=== PATIENT | female | born 1960 | race Caucasian/White ===

== ENCOUNTER 2020-09-29 20:04 | Inpatient (IN) | payer MEDICAID, SELFPAY ==
[2020-09-29] VITALS (13 sets, daily range): BP systolic 106–187; BP diastolic 75–142; PULSE 70–95; RESP 13–27; TEMP 36.8; O2SAT 92–99; BMI 26.5
--- NOTE | 2020-09-29 20:30 | XR_ITS ---
WS: [id number] Exam: XR chest 1V portable [id number] Date/Time of Exam: 09/29/2020 8:32 PM Reason For Exam: weakness Comparison 09/29/2011. Ill-defined nodular densities identified throughout both lungs apparently representing the patient's known metastatic pulmonary disease. The lungs are fully expanded. No consolidating infiltrate seen. N ormal cardiomediastinal structures. Bony elements appear to be intact. XR/XR chest 1V portable [id number] IMPRESSION: 1. Tiny ill-defined nodules scattered throughout both lungs which represents a change from the prior study. This apparently represents the patient's known pul monary metastatic disease. 2. No consolidating infiltrates or pneumothorax.
--- NOTE | 2020-09-29 20:30 | ECG_ITS ---
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 Measurements Intervals Br[place] Rate: 70 P: 35 [place]: 190 QRS: -4 QRSD: 84 T: 0 QT: 400 QTc: 433 Interpretive Statements SINUS RHYTHM MODERATE ST DEPRESSION [0.05+ mV ST DEPRESSION] No previous ECG available for comparison Electronically Signed On 09-30-2020 23:44:09 DRAFTER APPRENTICE by Branden Greene M.D. [id number]
--- NOTE | 2020-09-29 20:33 | ED_ITS ---
HPI - Weakness General: Chief complaint: Weakness Stated complaint: N/V WEAKNESS Time Seen by Provider: 09/29/20 20:30 History of Present Illness: HPI Narrative: Patient is a female comes to the ED via EMS for nausea/vomiting and generalized weakness. Symptoms started approximately 1 week ago and have gotten worse. She says she has had multiple episodes of emesis over the past several days. She says she has some mild abdominal pain that is centrally located on the abdomen. She endorses having a dry cough for the past several days as well. Denies any fever, chills, chest pain, shortness of breath, diarrhea, constipation, blood in the stool, dysuria, hematuria. Patient says she tested positive for COVID-19 back in May and fully recovered. Associated symptoms: Reports nausea and vomiting; Denies chest pain, chills, dysuria, fever(s) or headache(s) Review of Systems Const: Reports: fatigue and malaise; Denies: fever(s) or chills Eyes: Denies: change in vision or eye discomfort ENMT: Denies: throat pain, odynophagia, nasal discharge or nasal congestion Card: Denies: chest pain, palpitations, edema, swelling of feet/ankles, dyspnea on exertion or orthopnea Resp: Reports: non-productive cough; Denies: dyspnea or productive cough GI: Reports: abdominal pain (Periumbilical region), nausea and vomiting; Denies: diarrhea, constipation or hematochezia : Denies: flank pain, dysuria or hematuria Musc: Denies: neck pain, back pain or extremity swelling Skin/Breast: Denies: rash or new lesions Neuro: Denies: headache(s), numbness in extremities or weakness in extremities PFS ED PFSH: Medical History Arthritis Asthma Back pain Bipolar disorder Breast cancer Depression Dyslipidemia GERD (gastroesophageal reflux disease) Physical Exam Const: COMMON NORMALS: no acute distress, patient oriented x3 and alert GENERAL APPEARANCE: cooperative, comfortable and lethargic (Patient seems sleepy) ORIENTATION/CONSCIOUSNESS: Yes lethargic (Patient seems sleepy) HENMT: COMMON NORMALS: normocephalic HEAD & SCALP: normocephalic MOUTH: Normal oral and palatal mucosa present and moist mucous membranes abnormal (Moderate level and dehydration.) Details: parched THROAT: posterior oropharynx normal and uvula midline Eye: COMMON NORMALS: Equal, round and reactive pupils present and conjunctivae normal CONJUNCTIVA: Yes conjunctivae normal PUPIL: Yes Equal, round and reactive pupils present Neck/C-Spine: COMMON NORMALS: supple GENERAL: Yes normal visual inspection Resp: COMMON NORMALS: normal respiratory effort, No retractions, No use of accessory muscles and clear to auscultation bilaterally AUSCULTATION: clear to auscultation bilaterally Cardio: COMMON NORMALS: regular rate, regular rhythm, S1 normal heart sound present, S2 normal heart sound present, No gallops present (Cardio), No clicks present (Cardio) and No murmurs present (Cardio) RATE: regular rate RHYTHM: regular rhythm HEART SOUNDS: S1 normal heart sound present and S2 normal heart sound present PERIPHERAL PULSES: radial pulses present positive bilateral 1+ and dorsalis pedis present positive bilateral 1+ GI: COMMON NORMALS: Normal to inspection, nondistended, normoactive bowel sounds present, Soft to palpation and no masses PALPATION: Yes Soft to palpation and Yes Tenderness to palpation present (GI) (Periumbilical tenderness.) : COMMON NORMALS: Yes no CVA tenderness BLADDER/KIDNEY EXAM: Yes no CVA tenderness Back/Pelvis: COMMON NORMALS: no CVA tenderness Extremity: COMMON NORMALS: normal to inspection and no pedal edema Neuro: COMMON NORMALS: patient oriented x3 and moves all extremities SENSORIUM/ORIENTATION: Yes alert and Yes lethargic (Patient seems sleepy) Skin: GENERAL SKIN EXAM: dry skin Course Reevaluation(s): Reevaluation #1: I went and discussed CT results with patient. Patient says she was told over a year or 2 ago that she has possible breast cancer in the right breast. She said that she opted out of getting any treatment and has not seeked any further medical treatment or evaluation for breast cancer since. I told patient that CT findings show that breast cancer has metastasized and its in her lungs, bones and lymph nodes. Patient did not appear shocked or upset about findings. Time: 22:30 Vital Signs: Vital signs: Vital Signs Temperature 97.8 F 09/30/20 03:00 Pulse Rate 77 09/30/20 03:00 Respiratory Rate 17 09/30/20 03:00 Blood Pressure 203/107 09/30/20 03:00 Pulse Oximetry 90 09/30/20 03:00 MDM - Weakness MDM Narrative: Medical decision making narrative: Patient is a 60-year-old female comes to the ED with weakness, nausea and vomiting. She denies any chest pain or shortness of breath. Patient did end up telling me that she was told she had breast cancer and right breast over a year ago and she did not seek out any further treatment or care to address breast cancer. On exam patient seems lethargic and sleepy but is alert and oriented and responds to all my questions. She had some mild periumbilical tenderness upon palpation. CBC and CMP were unremarkable. CT of chest abdomen and pelvis showed right breast cancer with lung and bone metastases. First troponin 24 and 2-hour troponin was 114. I talked with patient about breast cancer diagnosis and its metastases. Patient did not seem surprised by news that her breast cancer had worsened. She told me that after she was diagnosed with breast cancer she just decided not to pursue any further treatment. I then discussed patient case with Dr. Means and he told me to call Dr. García to have patient admitted. I contacted Dr. García and he wants patient put in on obs and he had me order a CTA of Chest. Dr. Means put in admitting orders. Lab Data: Attestation: I reviewed the patient's lab results. Labs: Lab Results 09/29/20 09/29/20 09/29/20 Range/Units 20:40 20:40 20:40 WBC 10.2 H (4.0-10.0) 10^3/ uL Corrected WBC 9.8 (4.8-10.8) 10^3/ cmm RBC 4.59 (4.1-5.3) 10^6/u L Hgb 14.5 (11.5-15.3) g/dL Hct 43.8 (37.0-47.0) % MCV 95.4 (81-99) fL MCH 31.6 (28.0-34.0) pg MCHC 33.1 (30.0-36.0) g/dL RDW 14.4 (12.1-15.1) % Plt Count 164 (130-400) 10^3/c mm MPV 9.5 (7.4-10.4) fL Lymph % (Auto) Not Reportable [place] % (Auto) Not Reportable Lymph # (Auto) Not Reportable [place] # (Auto) Not Reportable Total Counted 100 (0-100) Atypical Lymphs % 0.0 (0-5) % Absolute Neutrophi ls 6.3 (1.4-6.5) 10^3/c mm Segmented Neutroph ils 60 % Abs Segm Neuts (Ma n) 6.1 (1.6-7.1) 10/cmm Band Neutrophils 2.0 % Abs Band Neuts (Ma n) 0.2 (0.0-1.2) 10^3/c mm Lymphocytes (Manua l) 28 % Monocytes (Manual) 3.0 % Absolute Monocytes 0.3 (0.1-0.6) 10^3/c mm Eosinophils (Manua l) 0 % Absolute Eosinophi ls 0.0 (0.0-0.7) 10^3/c mm Basophils (Manual) 0.0 % Absolute Basophils 0.0 (0.0-0.2) 10^3/c mm Metamyelocytes 6.0 % Myelocytes 1.0 % Nucleated RBCs 4.0 H (0-1) /100WBC Platelet Estimate Normal (Normal) Sodium 135 L (136-145) mmol/L Potassium 4.6 (3.5-5.1) mmol/L Chloride 94 L (98-107) mmol/L Carbon Dioxide 22 (22-29) mmol/L Anion Gap 23.6 H (5-19) BUN 23 (8-23) mg/dL Creatinine 0.7 (0.5-0.9) mg/dL GFR Calculation 85.4 L (90-130) mL/min Glucose 166 H (65-115) mg/dL Calculated Osmolal ity 287 (285-295) mOsm/k g Calcium 10.4 (8.5-10.5) mg/dL Total Bilirubin 0.4 (0.15-1.2) mg/dL AST 100 H (0-32) U/L ALT 171 H (0-33) U/L Alkaline Phosphata se 198 H (35-105) IU/L Troponin T Baselin e 24 H (0-10) ng/L Troponin T 120 Min twila (0-10) ng/L Delta Troponin T (0-10) ABS# Total Protein 7.6 (6.6-8.7) g/dL Albumin 4.8 (3.5-5.2) g/dL Globulin 2.8 (1.3-4.6) g/dL Lipase 33 (13-60) U/L Urine Color (Yellow) Urine Appearance (CLEAR) Urine pH (5-7) Ur Specific Gravit y (1.005-1.030) Urine Protein (Negative) Urine Glucose (UA) (Normal) Urine Ketones (Negative) Urine Blood (Negative) Urine Nitrate (Negative) Urine Bilirubin (Negative) Urine Urobilinogen (Negative) mg/dL Ur Leukocyte Liyah ase (Negative) Urine RBC (0-2) /hpf Urine WBC (0-5) /hpf Ur Squamous Epith Cells (0-5) /hpf Amorphous Sediment /hpf Urine Bacteria (NONE) /hpf Hyaline Casts /lpf 09/29/20 09/29/20 Range/Units 20:40 23:44 WBC (4.0-10.0) 10^3/ uL Corrected WBC (4.8-10.8) 10^3/ cmm RBC (4.1-5.3) 10^6/u L Hgb (11.5-15.3) g/dL Hct (37.0-47.0) % MCV (81-99) fL MCH (28.0-34.0) pg MCHC (30.0-36.0) g/dL RDW (12.1-15.1) % Plt Count (130-400) 10^3/c mm MPV (7.4-10.4) fL Lymph % (Auto) [place] % (Auto) Lymph # (Auto) [place] # (Auto) Total Counted (0-100) Atypical Lymphs % (0-5) % Absolute Neutrophi ls (1.4-6.5) 10^3/c mm Segmented Neutroph ils % Abs Segm Neuts (Ma n) (1.6-7.1) 10/cmm Band Neutrophils % Abs Band Neuts (Ma n) (0.0-1.2) 10^3/c mm Lymphocytes (Manua l) % Monocytes (Manual) % Absolute Monocytes (0.1-0.6) 10^3/c mm Eosinophils (Manua l) % Absolute Eosinophi ls (0.0-0.7) 10^3/c mm Basophils (Manual) % Absolute Basophils (0.0-0.2) 10^3/c mm Metamyelocytes % Myelocytes % Nucleated RBCs (0-1) /100WBC Platelet Estimate (Normal) Sodium (136-145) mmol/L Potassium (3.5-5.1) mmol/L Chloride (98-107) mmol/L Carbon Dioxide (22-29) mmol/L Anion Gap (5-19) BUN (8-23) mg/dL Creatinine (0.5-0.9) mg/dL GFR Calculation (90-130) mL/min Glucose (65-115) mg/dL Calculated Osmolal ity (285-295) mOsm/k g Calcium (8.5-10.5) mg/dL Total Bilirubin (0.15-1.2) mg/dL AST (0-32) U/L ALT (0-33) U/L Alkaline Phosphata se (35-105) IU/L Troponin T Baselin e (0-10) ng/L Troponin T 120 Min twila 114.0 H (0-10) ng/L Delta Troponin T 90.0 H* (0-10) ABS# Total Protein (6.6-8.7) g/dL Albumin (3.5-5.2) g/dL Globulin (1.3-4.6) g/dL Lipase (13-60) U/L Urine Color Yellow (Yellow) Urine Appearance Cloudy (CLEAR) Urine pH 7 (5-7) Ur Specific Gravit y 1.005 (1.005-1.030) Urine Protein Trace (Negative) Urine Glucose (UA) Norm (Normal) Urine Ketones 1+ H (Negative) Urine Blood 3+ H (Negative) Urine Nitrate Negative (Negative) Urine Bilirubin Neg (Negative) Urine Urobilinogen Norm (Negative) mg/dL Ur Leukocyte Liyah ase 2+ H (Negative) Urine RBC 10-15 H (0-2) /hpf Urine WBC 80-100 H (0-5) /hpf Ur Squamous Epith Cells 5-10 H (0-5) /hpf Amorphous Sediment 3+ /hpf Urine Bacteria 3+ H (NONE) /hpf Hyaline Casts 5-10 H /lpf Imaging Data^: CXR: Attestation: I personally reviewed and interpreted this imaging study as follows: CT Abd/Pel: Attestation: I personally reviewed and interpreted this imaging study as follows: Radiologist's impression: [address] [address] [address] Scan Report Signed with Addenda Patient: Savanah Taylor Unit #: [id number] : 1960 Age/Sex: 60 / F ADM Date: 09/29/20 Loc: ER Room/Bed: Attending Dr: Ordering Provider/Ordering MD: Michael Weinberg Date of Service: 09/29/20 Procedure(s): CT chest abd pel w con* Accession Number(s): [id number] Report Number: [id number]/CT chest abd pel w con* THIS REPORT CONTAINS FINDINGS THAT MAY BE CRITICAL TO PATIENT CARE. The findings were verbally communicated via telephone conference with Michael Weinberg at 10:17 PM DOWEL INSPECTOR on 09/29/2020. The findings were acknowledged and understood. Radiation Dose CTDIVOL = (mGy): DLP = 1351.78 1351.78 (mGy-cm) Addendum Dictated By: Giovanni Barriga Addendum Signed By: Giovanni Barriga Signed Date/Time: 09/29/20 2 217 Addendum Cosigned By: PROCEDURE INFORMATION: Exam: CT Chest With Contrast; Diagnostic Exam date and time: 09/29/2020 9:39 PM Age: 60 years old Clinical indication: Nausea and vomiting; Shortness of breath; Additional info: N/v and abdom pain TECHNIQUE: Imaging protocol: Diagnostic computed tomography of the chest with intravenous contrast. Radiation optimization: All CT scans at this facility use at least one of these dose optimization techniques: automated exposure control; mA and/or kV adjustment per patient size (includes targeted exams where dose is matched to clinical indication); or iterative reconstruction. Contrast material: OMNI 300; Contrast volume: 95 ml; Contrast route: INTRAVENOUS (IV); COMPARISON: CR XR chest 1V portable [id number] 09/29/2020 8:30 PM RADIATION DOSE METRICS: Total DLP (mGy-cm): 1351.78 FINDINGS: Lungs: Too numerous to count random pulmonary nodules in both lungs, measuring up to 1.1 cm. Calcified granuloma in the right lung. Pleural space: Unremarkable. No pneumothorax. No pleural effusion. Heart: Unremarkable. No cardiomegaly. No pericardial effusion. Mediastinal space: Large hiatal hernia. Aorta: Unremarkable. No aortic aneurysm. Lymph nodes: Mildly enlarged right axillary lymph nodes. Prominent mediastinal lymph nodes measuring up to 1.2 cm short axis. Bones/joints: Numerous tiny sclerotic lesions scattered throughout the entire skeleton. No pathologic fracture or compression fracture identified. Thoracic scoliosis. Soft tissues: Large 5.7 cm spiculated mass in the central right breast with overlying skin thickening and nipple retraction. IMPRESSION: 1. 5.7 cm spiculated mass in the central right breast with subareolar extension. This is consistent with breast malignancy. Follow-up with mammography and ultrasound recommended. 2. Severe pulmonary metastatic disease. 3. Severe diffuse blastic bony metastatic disease. 4. Probable right axillary lymph node metastasis. 5. Prominent mediastinal lymph nodes are most likely reactive but metastatic disease is not excluded. PROCEDURE INFORMATION: Exam: CT Abdomen And Pelvis With Contrast Exam date and time: 09/29/2020 9:39 PM Age: 60 years old Clinical indication: Nausea and vomiting; Shortness of breath; Additional info: N/v and abdom pain TECHNIQUE: Imaging protocol: Computed tomography of the abdomen and pelvis with intravenous contrast. Radiation optimization: All CT scans at this facility use at least one of these dose optimization techniques: automated exposure control; mA and/or kV adjustment per patient size (includes targeted exams where dose is matched to clinical indication); or iterative reconstruction. Contrast material: OMNI 300; Contrast volume: 95 ml; Contrast route: INTRAVENOUS (IV); COMPARISON: CR XR chest 1V portable [id number] 09/29/2020 8:30 PM RADIATION DOSE METRICS: Total DLP (mGy-cm): 1351.78 FINDINGS: Liver: Normal. No mass. Gallbladder and bile ducts: Normal. No calcified stones. No ductal dilation. Pancreas: Normal. No ductal dilation. Spleen: Normal. No splenomegaly. Adrenal glands: Normal. No mass. Kidneys and ureters: Normal. No hydronephrosis. Stomach and bowel: Moderate stool containing dense contrast material within the rectum. Mild diverticulosis of the distal colon. The small bowel is unremarkable. Appendix: The appendix is visualized and is normal. Intraperitoneal space: Unremarkable. No free air. No significant fluid collection. Vasculature: Unremarkable. No abdominal aortic aneurysm. Lymph nodes: Unremarkable. No enlarged lymph nodes. Urinary bladder: Unremarkable as visualized. Reproductive: Unremarkable as visualized. Bones/joints: Numerous sclerotic lesions scattered throughout the entire skeleton. No pathologic or compression fracture identified. Lumbar scoliosis. Soft tissues: Unremarkable. CT/CT chest abd pel w con* IMPRESSION: 1. No acute abnormality identified in the abdomen or pelvis. 2. Diffuse bony metastatic disease. Radiation Dose CTDIVOL = (mGy): DLP = 1351.78 1351.78 (mGy-cm) Dictated By: Giovanni Barriga Signed By: Giovanni Barriga Signed Date/Time: 09/29/202216 DD/ 15 EKG Data^: EKG 1: Attestation: I personally reviewed and interpreted this EKG as follows: EKG interpretation date: 09/29/20 Interpretation: Sinus rhythm, 70 bpm, no ST segment elevation or depression seen. EKG 2: Attestation: I personally reviewed and interpreted this EKG as follows: EKG interpretation date: 09/29/20 Interpretation: Normal sinus rhythm, 76 bpm, no ST segment elevation or depression seen. No acute changes compared to previous ECG at 2120 today. Discharge Plan Discharge Admit Provider: Abel García Discharge Orders: Transfer Out of Facility (Order); Ordered 09/30/20 Ordered By: Abel García Coding Level of Care Code ED Director [employer] Fwd Exam Comprehensive
[2020-09-29] MEDS: sodium chloride 0.9% 1,000 ML 999 ML IV (20:50)
[2020-09-29] MEDS: ondansetron 2 mg/ML SDV 2 mL 4 MG IVP (20:51)
[2020-09-29 20:52] LABS: Hematocrit 43.8 % (37.0-47.0); Hemoglobin 14.5 g/dL (11.5-15.3); Mean Corpuscular HGB Conc 33.1 g/dL (30.0-36.0); Mean Corpuscular Hemoglobin 31.6 pg (28.0-34.0); Mean Corpuscular Volume 95.4 fL (81-99); Mean Platelet Volume 9.5 fL (7.4-10.4); Platelet Count 164 10^3/cmm (130-400); Red Blood Count 4.59 10^6/uL (4.1-5.3); Red Cell Distribution Width 14.4 % (12.1-15.1); White Blood Count 10.2 10^3/uL (4.0-10.0)
[2020-09-29 21:17] LABS: Alanine Aminotransferase 171 U/L (0-33); Albumin Level 4.8 g/dL (3.5-5.2); Alkaline Phosphatase 198 IU/L (35-105); Anion Gap 23.6 (5-19); Aspartate Amino Transferase 100 U/L (0-32); Blood Urea Nitrogen 23 mg/dL (8-23); Calcium 10.4 mg/dL (8.5-10.5); Carbon Dioxide 22 mmol/L (22-29); Chloride 94 mmol/L (98-107); Globulin 2.8 g/dL (1.3-4.6); Glomerular Filtration Rate 85.4 mL/min (90-130); Glucose 166 mg/dL (65-115); Lipase 33 U/L (13-60); Osmolality Calculated 287 mOsm/kg (285-295); Potassium 4.6 mmol/L (3.5-5.1); Sodium 135 mmol/L (136-145); Total Bilirubin 0.4 mg/dL (0.15-1.2); Total Protein 7.6 g/dL (6.6-8.7)
[2020-09-29 21:21] LABS: Troponin(5th) Baseline 24 ng/L (0-10)
--- NOTE | 2020-09-29 21:29 | CTR_ITS ---
PROCEDURE INFORMATION: Exam: CT Chest With Contrast; Diagnostic Exam date and time: 09/29/2020 9:39 PM Age: 60 years old Clinical indication: Nausea and vomiting; Shortness of breath; Additional info: N/v and abdom pain TECHNIQUE: Imaging protocol: Diagnostic computed tomography of the chest with intravenous contrast. Radiation optimization: All CT scans at this facility use at least one of these dose optimization techniques: automated exposure control; mA and/or kV adjustment per patient size (includes targeted exams where dose is matched to clinical indication); or iterative reconstruction. Contrast material: OMNI 300; Contrast volume: 95 ml; Contrast route: INTRAVENOUS (IV); COMPARISON: CR XR chest 1V portable [id number] 09/29/2020 8:30 PM RADIATION DOSE METRICS: Total DLP (mGy-cm): 1351.78 FINDINGS: Lungs: Too numerous to count random pulmonary nodules in both lungs, measuring up to 1.1 cm. Calcified granuloma in the right lung. Pleural space: Unremarkable. No pneumothorax. No pleural effusion. Heart: Unremarkable. No cardiomegaly. No pericardial effusion. Mediastinal space: Large hiatal hernia. Aorta: Unremarkable. No aortic aneurysm. Lymph nodes: Mildly enlarged right axillary lymph nodes. Prominent mediastinal lymph nodes measuring up to 1.2 cm short axis. Bones/joints: Numerous tiny sclerotic lesions scattered throughout the entire skeleton. No pathologic fracture or compression fracture identified. Thoracic scoliosis. Soft tissues: Large 5.7 cm spiculated mass in the central right breast with overlying skin thickening and nipple retraction. IMPRESSION: 1. 5.7 cm spiculated mass in the central right breast with subareolar extension. This is consistent with breast malignancy. Follow-up with mammography and ultrasound recommended. 2. Severe pulmonary metastatic disease. 3. Severe diffuse blastic bony metastatic disease. 4. Probable right axillary lymph node metastasis. 5. Prominent mediastinal lymph nodes are most likely reactive but metastatic disease is not excluded. PROCEDURE INFORMATION: Exam: CT Abdomen And Pelvis With Contrast Exam date and time: 09/29/2020 9:39 PM Age: 60 years old Clinical indication: Nausea and vomiting; Shortness of breath; Additional info: N/v and abdom pain TECHNIQUE: Imaging protocol: Computed tomography of the abdomen and pelvis with intravenous contrast. Radiation optimization: All CT scans at this facility use at least one of these dose optimization techniques: automated exposure control; mA and/or kV adjustment per patient size (includes targeted exams where dose is matched to clinical indication); or iterative reconstruction. Contrast material: OMNI 300; Contrast volume: 95 ml; Contrast route: INTRAVENOUS (IV); COMPARISON: CR XR chest 1V portable [id number] 09/29/2020 8:30 PM RADIATION DOSE METRICS: Total DLP (mGy-cm): 1351.78 FINDINGS: Liver: Normal. No mass. Gallbladder and bile ducts: Normal. No calcified stones. No ductal dilation. Pancreas: Normal. No ductal dilation. Spleen: Normal. No splenomegaly. Adrenal glands: Normal. No mass. Kidneys and ureters: Normal. No hydronephrosis. Stomach and bowel: Moderate stool containing dense contrast material within the rectum. Mild diverticulosis of the distal colon. The small bowel is unremarkable. Appendix: The appendix is visualized and is normal. Intraperitoneal space: Unremarkable. No free air. No significant fluid collection. Vasculature: Unremarkable. No abdominal aortic aneurysm. Lymph nodes: Unremarkable. No enlarged lymph nodes. Urinary bladder: Unremarkable as visualized. Reproductive: Unremarkable as visualized. Bones/joints: Numerous sclerotic lesions scattered throughout the entire skeleton. No pathologic or compression fracture identified. Lumbar scoliosis. Soft tissues: Unremarkable. CT/CT chest abd pel w con* IMPRESSION: 1. No acute abnormality identified in the abdomen or pelvis. 2. Diffuse bony metastatic disease. Radiation Dose CTDIVOL = (mGy): DLP = 1351.78~1351.78 (mGy-cm)
[2020-09-29 21:32] LABS: Slide Review Slide Review Perform
[2020-09-29 21:39] LABS: Absolute Segmented Neutrophil 6.1 10/cmm (1.6-7.1); Band Neutrophils Absolute 0.2 10^3/cmm (0.0-1.2); Corrected White Blood Count 9.8 10^3/cmm (4.8-10.8); Eosinophils 0 %; Lymphocytes 28 %; Monocytes Absolute 0.3 10^3/cmm (0.1-0.6); Segmented Neutrophils 60 %; Total Cells Counted 100 (0-100)
[2020-09-29 21:40] LABS: Absolute Neutrophil 6.3 10^3/cmm (1.4-6.5); Platelet Estimate Normal (Normal)
[2020-09-29] MEDS: iohexol 300 mg/mL 100 mL Btl IV (21:48)
[2020-09-29] MEDS: sodium chloride 0.9% 500 ML 999 ML IV (23:54)
[2020-09-29] MEDS: metoclopramide 5 mg/mL SDV 2 mL 10 MG IVP (23:54)
[2020-09-30] VITALS (27 sets, daily range): BP systolic 164–203; BP diastolic 87–127; PULSE 67–115; RESP 11–26; TEMP 36.1–36.6; O2SAT 90–94
[2020-09-30 00:10] LABS: Bilirubin Urine Neg (Negative); Blood Urine 3+ (Negative); Glucose Urine UA Norm (Normal); Ketones Urine 1+ (Negative); Leukocyte Esterase Urine 2+ (Negative); Nitrate Urine Negative (Negative); Protein Urine Trace (Negative); Specific Gravity, Urine 1.005 (1.005-1.030); Urine Appearance Cloudy (CLEAR); Urine Color Yellow (Yellow); Urobilinogen Urine Norm (Negative); pH Urine 7 (5-7)
[2020-09-30 00:11] LABS: Amorphous Sediment Urine 3+ /hpf; Bacteria Urine 3+ /hpf; WBC Urine 80-100 /hpf (0-5)
[2020-09-30 00:12] LABS: Add Urine Culture? Yes
--- NOTE | 2020-09-30 01:10 | CTR_ITS ---
PROCEDURE INFORMATION: Exam: CT Angiography Chest With Contrast Exam date and time: 09/30/2020 1:15 AM Age: 60 years old Clinical indication: Other: Weakness TECHNIQUE: Imaging protocol: Computed tomographic angiography of the chest with intravenous contrast. 3D rendering (Not supervised by radiologist): MIP and/or 3D reconstructed images were created by the technologist. Radiation optimization: All CT scans at this facility use at least one of these dose optimization techniques: automated exposure control; mA and/or kV adjustment per patient size (includes targeted exams where dose is matched to clinical indication); or iterative reconstruction. Contrast material: OMNI 350; Contrast volume: 95 ml; Contrast route: INTRAVENOUS (IV); COMPARISON: CT chest abd pel w con* 2020-09-29 21:37 RADIATION DOSE METRICS: Total DLP (mGy-cm): 603.66 FINDINGS: Pulmonary arteries: Couple small segmental and subsegmental branch pulmonary emboli. Aorta: Unremarkable. No aortic aneurysm. No aortic dissection. Lungs: Innumerable pulmonary metastases with innumerable pulmonary nodules. Pleural space: Unremarkable. No pneumothorax. No pleural effusion. Heart: No cardiac heart strain. Mediastinal space: Moderate hiatal hernia. Lymph nodes: Right axillary adenopathy. Mediastinal and hilar adenopathy. Bones/joints: Skeletal osseous metastases. Soft tissues: Large right breast mass. CT/CT angio chest PE protcl [id number] IMPRESSION: 1. Right axillary adenopathy. Large right breast mass. 2. Couple small segmental and subsegmental branch pulmonary emboli. No cardiac heart strain. 3. Innumerable pulmonary metastases with innumerable pulmonary nodules. 4. Skeletal osseous metastases. THIS REPORT CONTAINS FINDINGS THAT MAY BE CRITICAL TO PATIENT CARE. The study was personally discussed on the telephone with care provider Dr Faith on 09/30/2020 2:35 AM LINE INSPECTOR. The results were understood and acknowledged. Radiation Dose CTDIVOL = (mGy): DLP = 603.66 (mGy-cm)
[2020-09-30] MEDS: iohexol 350 mg/mL 100 mL Btl IV (01:38)
--- NOTE | 2020-09-30 01:42 | P.HP_ITS ---
Providers/Chief Complaint Admitting Physician: Abel García MD Chief Complaint: N/V WEAKNESS History of Present Illness Savanah Taylor is a 60 year old female who presented to the hospital with chief complaint of altered mental status. Patient was accompanied by her daughter as per the ER report however I was not able to talk with any family member. Patient is stating that she started having chest discomfort yesterday which got worse and she started experiencing vomiting. She has had multiple episode of emesis. She is not able to give me much detail. She is not able to describe her chest pain. Her answers are mostly 2 or 3 sentences. Daughter is not present at the time my evaluation. I was told she was diagnosed with breast cancer 2 to 3 years ago but never pursued any treatment. Diagnostics in the ER revealed mild leukocytosis, hypertension, mild hyponatremia, first troponin XX 4, second troponin 114 with abnormal transaminases, CT abdomen revealed breast cancer with multiple metastases, chest x-ray revealed multiple hilar lymphadenopathies. When I was interviewing patient, her attention span was very short and her answers were very simple she was not able to give me any details. Her breathing was not labored. She was able to protect airways. I requested CTA chest and head CT. CT head came back positive for multiple segmental subsegmental PE, head CT critical findings of hydrocephalus, cerebellar edema effacement of fourth ventricle. ER has already given her therapeutic dose of Lovenox for NSTEMI because of delta troponin and ST depression V4 V5 v6, I have discontinued Lovenox, given 10 mg IV Decadron and started on 4 mg Decadron 4 times daily I was not able to get a hold of any family member called 4-5 times,left a voicemail, I eventually requested global chief creative officer to go on the given address to wake her family member up so we could discuss further plan of care. Meanwhile I have talked with the neurosurgeon at [facility], I was able to get in touch with chief of neurosurgery Dr. Peraza and fellow Dr. Randhawa. Facesheet has been faxed, bed has been put on hold. Neurosurgery is concerned whether family would pursue further treatment considering the fact she never pursued any treatment for breast cancer. This is a difficult situation where patient mentation is fluctuant with a very short attention span and we are not able to get in touch with the family. We are still waiting to get update from the global chief creative officer. I have tried my best to explain findings in a simple way to the patient and when I asked her about the transfer and placement of palliative shunt she stated I guess that was needed but I do not know . She was sent to cardiac stepdown unit for management of NSTEMI however I will transfer her to ICU for closer monitoring. Will obtain blood gas level , Review of Systems General: Reports: ROS unobtainable due to medical condition (Delirium se condary to cerebellar edema multiple metastases) Medications/Allergies Home Medications Medication Instructions Recorded Confirmed Last Taken Type Unable to Assess 09/29/20 09/29/20 Unknown History Allergies Allergy/AdvReac Type Severity Reaction Status Date / Time metronidazole [From Flagyl] Allergy ALGY-Rash Verified 09/29/20 20:28 PFSH Acute PFSH: Medical History Arthritis Asthma Back pain Bipolar disorder Breast cancer Depression Dyslipidemia GERD (gastroesophageal reflux disease) Surgical History Surgical history unknown Family History Other Unknown family medical history Social History Smoking and tobacco status: unknown if ever smoked Alcohol intake: unknown Substance/Drug Use: unknown Household members: family Vitals/I&O/Wt Last Vital Signs Temp 98.3 F 09/29/20 20:14 Pulse 90 09/30/20 00:00 Resp 16 09/30/20 00:00 BP 200/107 09/30/20 00:00 Pulse Ox 93 09/30/20 00:00 09/29/20 09/29/20 09/30/20 14:59 22:59 06:59 Intake Total 1000 / 1000 Balance 1000 / 1000 Weight last 48 hrs Weight 68.039 kg Physical Exam Narrative: EXAM NARRATIVE: Middle-age female Appears clinically dehydrated She is able to move her extremities without any gross abnormality Pupils are reactive and symmetrical bilaterally Her attention span is very short Her answers are mostly in 2-3 word sentences Her breathing is normal, she saturating well on room air she is able to protect airways Able to understand my questions but seems indecisive S1, S2 sinus rhythm Abdomen soft nontender bowel sound present Lower extremity no edema gangrene ulcer She is able to move her lower extremities without any limitations, sensory exam is limited Bilateral breath sounds without adventitious rhonchi or crackles She is awake alert to herself and place not time Data : 09/29/20 20:40 09/29/20 20:40 A&P Assessment and plan (1) NSTEMI (non-ST elevated myocardial infarction): Status: Acute (2) Cerebellar edema: Status: Acute (3) Metastatic breast cancer: Status: Acute (4) Bony metastasis: Status: Acute (5) Encephalopathy: Status: Acute (6) Dehydration: Status: Acute Additional A&P Information Altered mental status Secondary to vasogenic edema due to brain metastases History of untreated breast cancer High risk for intubation Currently she is awake alert to herself no acute respiratory distress Would request blood gas Transfer to ICU Start her on Decadron Keep head end of the bed elevated I will start her on mannitol 0.25 g/kg and administer over 30 to 60 minutes and check serum osmolarity after 2 hours NSTEMI Significant troponin with ST depression V4 V5 V6 without cerebral T waves She was given therapeutic dose of Lovenox in the ER which I would hold for now secondary to metastases Patient not complaining of active chest pain Dehydration secondary to emesis She is hypertensive with vasogenic edema I would avoid giving any kind of fluids for now We will give her mannitol in the ICU Full code N.p.o. DVT prophylaxis SCDs avoid anticoagulation she is therapeutic dose of Lovenox in the ER We will transfer her to [facility] once I hear back from the global chief creative officer. For the details read HPI. Attestations Medical Necessity Statement*: Anticipating stay in the hospital cross more than 2 midnights carries guarded prognosis needs management of cerebral edema with risk of intracranial hypertension Time Spent in Patient Care: (>than 50% of time spent in counselling and/or direct pt care on unit) . 60mins Coding Level of Care Code Acute Residential Nurse for Chg Fwd Diagnoses NSTEMI (non-ST elevated myocardial infarction) I21.4 Cerebellar edema G93.6 Metastatic breast cancer C50.919 Bony metastasis C79.51 Encephalopathy G93.40 Dehydration E86.0
--- NOTE | 2020-09-30 02:14 | CTR_ITS ---
PROCEDURE INFORMATION: Exam: CT Head Without Contrast Exam date and time: 09/30/2020 2:27 AM Age: 60 years old Clinical indication: Condition or disease; History of cancer (specify primary cancer site): ; Primary cancer: Breast w/ mets TECHNIQUE: Imaging protocol: Computed tomography of the head without contrast. Radiation optimization: All CT scans at this facility use at least one of these dose optimization techniques: automated exposure control; mA and/or kV adjustment per patient size (includes targeted exams where dose is matched to clinical indication); or iterative reconstruction. COMPARISON: CT head wo con* [id number] 12/10/2013 2:21 PM RADIATION DOSE METRICS: Total DLP (mGy-cm): 603.66 FINDINGS: Brain: Residual contrast from recent CT chest angiogram is noted. Mild enhancement and thickening of the tegmentum is noted. Cerebellar edema is noted. The aqueduct is patent. However, the 4th ventricle is nearly completely effaced and mild hydrocephalus is noted. Effacement of the basal cisterns is also noted. No hemorrhage or CT evidence of acute infarction is seen. Bones/joints: Unremarkable. No acute fracture. Paranasal sinuses: Unremarkable. No fluid level. Mastoid air cells: Visualized mastoid air cells are well aerated. Soft tissues: Unremarkable. CT/CT head wo con* [id number] IMPRESSION: 1. Brain edema which is most prominent in the cerebellum. The 4th ventricle is nearly completely effaced and mild hydrocephalus is noted. 2. Thickening and enhancement tegmentum is appreciated, which is nonspecific. MRI with contrast is recommended for further assessment. Radiation Dose CTDIVOL = (mGy): DLP = 603.66 (mGy-cm)
--- NOTE | 2020-09-30 02:30 | ECG_ITS ---
[facility] Test Date: 2020-09-30 Pat Name: Savanah Taylor Department: Room: 112 Gender: Female University Administrator: AMELIA LAU: 1960 Requested By: Michael Weinberg Order Number: [id number] Ayana MD: Branden Greene M.D. Measurements Intervals [place] Rate: 71 P: -27 WI: 176 QRS: -1 QRSD: 86 T: -17 QT: 408 QTc: 445 Interpretive Statements SINUS RHYTHM POSSIBLE INFERIOR MYOCARDIAL INFARCTION [30 ms Q WAVE IN II/aVF], OF INDETERMINATE AGE Compared to ECG 09/29/2020 21:21:55 Myocardial infarct finding now present ST (T wave) deviation no longer present Electronically Signed On 10-01-2020 0:00:19 ATM TECHNICIAN by Branden Greene M.D. [id number]
--- NOTE | 2020-09-30 03:07 | PC.NURSE ---
Spoke with Dr. García regarding this patient's blood pressure of 203/107. New telephone order received for hydralazine 5 mg iv push.
[2020-09-30] MEDS: hyDRALAzine 20 mg/mL INJ 1 mL 5 MG IVP ×2 (03:18→11:15)
[2020-09-30] MEDS: enoxaparin 100 mg/mL Syringe 70 MG SUBCUT (03:19)
--- NOTE | 2020-09-30 04:19 | PC.NURSE ---
Just notified [place] police department in an attempt to locate this patient's family. The patient at this point is not able to make her own decisions and we are awaiting word from the family on how to proceed with the care of this patient.
--- NOTE | 2020-09-30 04:25 | PC.NURSE ---
Addendum entered by Sonu Tay RN 09/30/20 04:27: let the time for this note reflect the time of admission at 0230. Thank you. Original Note: Pt arrived via ED carrier. Pt transferred to the hospital bed via draw sheet and total lift transfer. Pt is assessed and admission is completed. Pt is placed on the blacktop paver operator. Pt is lethargic and slow to respond. Pt will answer some questions appropriately however occasionally will not respond at all to questions. Pt denies any pain at this time.
--- NOTE | 2020-09-30 04:28 | PC.NURSE ---
Spoke with the transfer center for [facility] phone number [phone] and provided them with the information required. Face sheet faxed. We are currently waiting to hear from the family of this patient to determine the progression of care at this point.
[2020-09-30 04:55] LABS: Troponin 5 6HR 177.5 ng/L (0-10)
[2020-09-30 04:56] LABS: Troponin 5 6HR Delta 153.5 ng/L (0-12)
[2020-09-30 05:13] LABS: ABG PH Result 7.44 (7.35-7.45); Arterial Blood Gas Hematocrit 44.3 % (37-47); Base Excess ABG -1.9 mmol/L (-2.0-2.0); Blood Gas Sample Site Brachial, right; Blood Gas Sample Type Arterial; HCO3 ABG 21.2 mmol/L (22-26); PO2 ABG 68.9 mmHg (80.0-100.0)
--- NOTE | 2020-09-30 05:15 | P.TS_ITS ---
Transfer Summary Providers Date of Admission: 09/30/20 01:23 Date of Discharge: 09/30/20 Attending Provider at Admission: Abel García MD Attending Provider at Transfer: Abel García MD Anticipated Date of Transfer: Anticipated date of transfer: 09/30/20 Receiving Facility & Provider: Receiving Provider: [] Receiving facility: [] Diagnoses at Discharge Discharge Diagnosis (1) NSTEMI (non-ST elevated myocardial infarction): Status: Acute (2) Cerebellar edema: Status: Acute (3) Metastatic breast cancer: Status: Acute (4) Bony metastasis: Status: Acute (5) Encephalopathy: Status: Acute (6) Dehydration: Status: Acute Reason for Visit Reason for Visit: N/V WEAKNESS Hospital Course Hospital Course Transferring patient because we do not have the neurosurgeon on-call for management of hydrocephalus, she will need palliative shunt placement Savanah Taylor is a 60 year old female who presented to the hospital with chief complaint of altered mental status. Patient was accompanied by her daughter as per the ER report however I was not able to talk with any family member. Patient is stating that she started having chest discomfort yesterday which got worse and she started experiencing vomiting. She has had multiple episode of emesis. She is not able to give me much detail. She is not able to describe her chest pain. Her answers are mostly 2 or 3 sentences. Daughter is not present at the time my evaluation. I was told she was diagnosed with breast cancer 2 to 3 years ago but never pursued any treatment. Diagnostics in the ER revealed mild leukocytosis, hypertension, mild hyponatremia, first troponin XX 4, second troponin 114 with abnormal transaminases, CT abdomen revealed breast cancer with multiple metastases, chest x-ray revealed multiple hilar lymphadenopathies. When I was interviewing patient, her attention span was very short and her answers were very simple she was not able to give me any details. Her breathing was not labored. She was able to protect airways. I requested CTA chest and head CT. CT head came back positive for multiple segmental subsegmental PE, head CT critical findings of hydrocephalus, cerebellar edema effacement of fourth ventricle. ER has already given her therapeutic dose of Lovenox for NSTEMI because of delta troponin and ST depression V4 V5 v6, I have discontinued Lovenox, given 10 mg IV Decadron and started on 4 mg Decadron 4 times daily I was not able to get a hold of any family member called 4-5 times,left a voicemail, I eventually requested police booking officer to go on the given address. Meanwhile I have talked with the neurosurgeon at [facility], I was able to get in touch with chief of neurosurgery Dr. Peraza and fellow Dr. Randhawa. Facesheet has been faxed, bed has been put on hold. Neurosurgery is concerned whether family would pursue further treatment considering the fact she never pursued any treatment for breast cancer. This is a difficult situation where patient mentation is fluctuant with a very short attention span and we are not able to get in touch with the family. We are still waiting to get update from the police booking officer. I have tried my best to explain findings in a simple way to the patient and when I asked her about the transfer and placement of palliative shunt she stated I guess that was needed but I do not know . She was sent to cardiac stepdown unit for management of NSTEMI however I will transfer her to ICU for closer monitoring. Blood gas showed respiratory alkalosis 7.44 pH, PCO2 31, PO2 70, will put on 3 to nasal cannula during transport Daughter call us back at 5 AM: All the findings were explained, she agreed with the transfer and wants to go ahead and transfer her mother for possible palliative shunt, she was explained all the risk factors including during her transportation, she understood and all questions were answered to her satisfaction Physical Exam Narrative: EXAM NARRATIVE: Middle-age female Appears clinically dehydrated She is able to move her extremities without any gross abnormalities Pupils are reactive and symmetrical bilaterally Her attention span is very short Her answers are mostly in 2-3 word sentences Her breathing is not labored, she saturating well on room air she is able to protect airways Able to understand my questions but seems indecisive S1, S2 sinus rhythm Abdomen soft nontender bowel sound present Lower extremity no edema gangrene ulcer She is able to move her lower extremities without any limitations, sensory exam is limited Bilateral breath sounds without adventitious rhonchi or crackles She is awake alert to herself and place not time TS Data Data Completed and Pending: Completed Studies During Hospitalization Category Date Time Status CT angio chest PE protcl [id number] Urge nt Cat Scan 09/30/20 01:[address] chest abd pel w con* Urgent Cat Scan 09/29/20 21:[address] head wo con* [id number] Stat Cat Scan 09/30/20 02:14 Completed Pending at discharge Category Date Time Status XR chest 1V roe ble [id number] Stat Exams 09/29/20 20:30 Taken Urine Culture Sta t Lab 09/29/20 23:44 Received Labs from last 24 hours 09/30/20 09/30/20 09/29/20 05:02 03:07 23:44 WBC Corrected WBC RBC Hgb Hct MCV MCH MCHC RDW Plt Count MPV Lymph % (Auto) [place] % (Auto) Lymph # (Auto) [place] # (Auto) Total Counted Atypical Lymphs % Absolute Neutrophi ls Segmented Neutroph ils Abs Segm Neuts (Ma n) Band Neutrophils Abs Band Neuts (Ma n) Lymphocytes (Manua l) Monocytes (Manual) Absolute Monocytes Eosinophils (Manua l) Absolute Eosinophi ls Basophils (Manual) Absolute Basophils Metamyelocytes Myelocytes Nucleated RBCs Platelet Estimate Specimen Type Arterial Sample Site Brachial, right ABG pH 7.44 ABG pCO2 31.0 L ABG pO2 68.9 L ABG HCO3 21.2 L ABG Base Excess -1.9 Daniel Test N/a Hematocrit 44.3 O2 Delivery Device None FiO2 21.0 Flipping Machine Operator ID [id number] Sodium Potassium Chloride Carbon Dioxide Anion Gap BUN Creatinine GFR Calculation Glucose Calculated Osmolal ity Calcium Total Bilirubin AST ALT Alkaline Phosphata se Troponin T Baselin e Troponin T 120 Min wrangell Delta Troponin T Troponin T Hi Sens 6Hr 177.5 H Troponin T Hi Sens 6Hr Delta 153.5 H* Total Protein Albumin Globulin Lipase Urine Color Yellow Urine Appearance Cloudy Urine pH 7 Ur Specific Gravit y 1.005 Urine Protein Trace Urine Glucose (UA) Norm Urine Ketones 1+ H Urine Blood 3+ H Urine Nitrate Negative Urine Bilirubin Neg Urine Urobilinogen Norm Ur Leukocyte Liyah ase 2+ H Urine RBC 10-15 H Urine WBC 80-100 H Ur Squamous Epith Cells 5-10 H Amorphous Sediment 3+ Urine Bacteria 3+ H Hyaline Casts 5-10 H 09/29/20 09/29/20 09/29/20 20:40 20:40 20:40 WBC Corrected WBC RBC Hgb Hct MCV MCH MCHC RDW Plt Count MPV Lymph % (Auto) [place] % (Auto) Lymph # (Auto) [place] # (Auto) Total Counted Atypical Lymphs % Absolute Neutrophi ls Segmented Neutroph ils Abs Segm Neuts (Ma n) Band Neutrophils Abs Band Neuts (Ma n) Lymphocytes (Manua l) Monocytes (Manual) Absolute Monocytes Eosinophils (Manua l) Absolute Eosinophi ls Basophils (Manual) Absolute Basophils Metamyelocytes Myelocytes Nucleated RBCs Platelet Estimate Specimen Type Sample Site ABG pH ABG pCO2 ABG pO2 ABG HCO3 ABG Base Excess Daniel Test Hematocrit O2 Delivery Device FiO2 Flipping Machine Operator ID Sodium 135 L Potassium 4.6 Chloride 94 L Carbon Dioxide 22 Anion Gap 23.6 H BUN 23 Creatinine 0.7 GFR Calculation 85.4 L Glucose 166 H Calculated Osmolal ity 287 Calcium 10.4 Total Bilirubin 0.4 AST 100 H ALT 171 H Alkaline Phosphata se 198 H Troponin T Baselin e 24 H Troponin T 120 Min wrangell 114.0 H Delta Troponin T 90.0 H* Troponin T Hi Sens 6Hr Troponin T Hi Sens 6Hr Delta Total Protein 7.6 Albumin 4.8 Globulin 2.8 Lipase 33 Urine Color Urine Appearance Urine pH Ur Specific Gravit y Urine Protein Urine Glucose (UA) Urine Ketones Urine Blood Urine Nitrate Urine Bilirubin Urine Urobilinogen Ur Leukocyte Liyah ase Urine RBC Urine WBC Ur Squamous Epith Cells Amorphous Sediment Urine Bacteria Hyaline Casts 09/29/20 20:40 WBC 10.2 H Corrected WBC 9.8 RBC 4.59 Hgb 14.5 Hct 43.8 MCV 95.4 MCH 31.6 MCHC 33.1 RDW 14.4 Plt Count 164 MPV 9.5 Lymph % (Auto) Not Reportable [facility] % (Auto) Not Reportable Lymph # (Auto) Not Reportable [facility] [place] # (Auto) Not Reportable Total Counted 100 Atypical Lymphs % 0.0 Absolute Neutrophi ls 6.3 Segmented Neutroph ils 60 Abs Segm Neuts (Ma n) 6.1 Band Neutrophils 2.0 Abs Band Neuts (Ma n) 0.2 Lymphocytes (Manua l) 28 Monocytes (Manual) 3.0 Absolute Monocytes 0.3 Eosinophils (Manua l) 0 Absolute Eosinophi ls 0.0 Basophils (Manual) 0.0 Absolute Basophils 0.0 Metamyelocytes 6.0 Myelocytes 1.0 Nucleated RBCs 4.0 H Platelet Estimate Normal Specimen Type Sample Site ABG pH ABG pCO2 ABG pO2 ABG HCO3 ABG Base Excess Daniel Test Hematocrit O2 Delivery Device FiO2 Flipping Machine Operator ID Sodium Potassium Chloride Carbon Dioxide Anion Gap BUN Creatinine GFR Calculation Glucose Calculated Osmolal ity Calcium Total Bilirubin AST ALT Alkaline Phosphata se Troponin T Baselin e Troponin T 120 Min wrangell Delta Troponin T Troponin T Hi Sens 6Hr Troponin T Hi Sens 6Hr Delta Total Protein Albumin Globulin Lipase Urine Color Urine Appearance Urine pH Ur Specific Gravit y Urine Protein Urine Glucose (UA) Urine Ketones Urine Blood Urine Nitrate Urine Bilirubin Urine Urobilinogen Ur Leukocyte Liyah ase Urine RBC Urine WBC Ur Squamous Epith Cells Amorphous Sediment Urine Bacteria Hyaline Casts Vitals: Last Vital Signs Temp 97.8 F 09/30/20 03:00 Pulse 77 09/30/20 03:00 Resp 17 09/30/20 03:00 BP 203/107 09/30/20 03:00 Pulse Ox 90 09/30/20 03:00 TS Medications Medications Home Medications Unable to Assess 09/29/20 [History Confirmed 09/29/20] Active Medications Dexamethasone (Dexamethasone 4 Mg Tablet) 4 mg PO QID [place] Dexamethasone (Dexamethasone 4 Mg/Ml Inj) 10 mg IVP ONCE ONE Stop: 09/30/20 05:16 Mannitol 17 gm/ N/A 68 mls @ 60 mls/hr IV ONCE ONE Stop: 09/30/20 06:07 Discharge Plan Discharge Patient Disposition: Home Condition: Stable Prescriptions: No Action Unable to Assess RF: 0 Discharge Orders: Transfer Out of Facility (Order); Ordered 09/30/20 Ordered By: Abel García Discharge Diet: As Directed Discharge Activity: Bedrest Transfer Attestations Time Spent in Transfer Care*: greater than 30 min Status at Transfer: Cognitive status at transfer: mildly impaired cognition , Behavioral status at transfer: cooperative , Functional status at transfer: bed bound Quality Metrics Clinical Quality Measures: During this hospital stay, did patient experience: Stroke Contraindication to Antithrombotic: Medical contraindication Contraindication to Anticoagulation: Medical contraindication Contraindication to Statin: Medical contraindication Coding Level of Care Code Acute Frame Changer for [facility] Fwd Diagnoses NSTEMI (non-ST elevated myocardial infarction) I21.4 Cerebellar edema G93.6 Metastatic breast cancer C50.919 Bony metastasis C79.51 Encephalopathy G93.40 Dehydration E86.0
[2020-09-30] MEDS: dexamethasone 4 mg/mL INJ 10 MG IVP (05:18)
--- NOTE | 2020-09-30 06:27 | PC.NURSE ---
Report called to Colleen Santos RN at [facility]00 (Trauma ICU). [facility] called to arrange ground transport of this patient. We are awaiting [facility] to return our call to state if they will accept the transport or not. Phone number for [facility] is. [phone] then hit option 0 to speak with a dispatcher.
--- NOTE | 2020-09-30 07:56 | PC.NURSE ---
Telephone order received from Dr. Shabazz to allow patient's son, Miles to come and visit before patient is transferred out of facility. vendor quality supervisor and security notified.
--- NOTE | 2020-09-30 10:25 | PC.NURSE ---
order received for 5 mg hydralazine IVP once. medication administered as transportation arrived. Patient transferred onto EMS [facility]. Bedside report given by primary nurse to EMT. No further questions. Nurse attempted to notify family that the patient had been picked up, but there was no answer.
--- NOTE | 2020-09-30 10:56 | PC.NURSE ---
Dr. Shabazz notified that patient has become more lethargic. Left pupil has become more sluggish. VS assessed. Patient hypertensive. HR 120s sinus tach. Physician to report to bedside.
[2020-09-30 11:16] LABS: Glucose Point of Care 152 mg/dL (70-110)
== END 2020-09-30 11:20 | disposition short-term general hospital (02) | DRG 80 ==
LOC: ER 20:34 → CSU 09-30 05:24
PROVIDERS: Admitting Provider Internal Medicine; Emergency Provider Physician Assistant; Visit Provider Internal Medicine
DX: G93.6 Cerebral edema (principal); I26.94 Multiple subsegmental thrombotic pulmonary emboli without acute cor pulmonale; I21.4 Non-ST elevation (NSTEMI) myocardial infarction; C78.02 Secondary malignant neoplasm of left lung; C78.01 Secondary malignant neoplasm of right lung; C79.51 Secondary malignant neoplasm of bone; C79.31 Secondary malignant neoplasm of brain; E87.1 Hypo-osmolality and hyponatremia; G93.40 Encephalopathy, unspecified; G91.4 Hydrocephalus in diseases classified elsewhere; C50.111 Malignant neoplasm of central portion of right female breast; I10 Essential (primary) hypertension; M19.90 Unspecified osteoarthritis, unspecified site; M54.9 Dorsalgia, unspecified; F32.9 Major depressive disorder, single episode, unspecified; E78.5 Hyperlipidemia, unspecified; K21.9 Gastro-esophageal reflux disease without esophagitis; E86.0 Dehydration
CPT/HCPCS: 12345; 36415; 36416; 36600; 51702; 70450; 71045; 71260; 71275; 74177; 80053; 81001; 82803; 82962; 83690; 84484; 85007; 85025; 87086; 93005; 96372; 99283; J0360; J1100; J1650; J2405; J2765; J7030; J7040; Q9967